=== PATIENT | female | born 1985 | race Caucasian/White ===

== ENCOUNTER 2020-10-25 19:36 | Emergency (ER) | payer SELFPAY ==
[2020-10-25 19:39] VITALS: BP 142/95; PULSE 118; TEMP 98.2; BMI 27.4
[2020-10-25] MEDS ORDERED: KETOROLAC TROMETHAMINE 30 MG/1 ML VIAL ONE (20:04)
[2020-10-25] MEDS ORDERED: KETOROLAC TROMETHAMINE 60 MG/2 ML VIAL IM ONE (20:16)
== END 2020-10-25 20:23 | disposition home or self-care (01) ==
LOC: JERFT 19:36
PROC: 3E0233Z Introduction of Anti-inflammatory into Muscle, Percutaneous Approach (ICD-10-PCS; principal; 2020-10-25)
DX: M54.2 Cervicalgia (principal); M54.9 Dorsalgia, unspecified
CPT/HCPCS: 99284-25

== ENCOUNTER 2020-12-08 22:52 | Emergency (ER) | payer OTHER ==
[2020-12-08 23:00] VITALS: TEMP 99.1; BMI 26.2
[2020-12-09] MEDS ORDERED: ACETAMINOPHEN 325 MG TABLET (FP) PO ONE (00:24)
[2020-12-09] MEDS ORDERED: ACETAMINOPHEN 325 MG TABLET (FP) ONE (00:28)
[2020-12-09 04:14] VITALS: BP 124/75; PULSE 80
== END 2020-12-09 03:41 | disposition home or self-care (01) ==
LOC: JER 22:52
DX: S93.402A Sprain of unspecified ligament of left ankle, initial encounter (principal)
CPT/HCPCS: 73610-TC-LT-FY; 73630-TC-LT; 99283-25

== ENCOUNTER 2021-06-27 11:38 | Emergency (ER) | payer OTHER ==
[2021-06-27 11:45] VITALS: BP 116/83; PULSE 72; TEMP 98.4; BMI 24.7
[2021-06-28 07:08] LABS: SARS-CoV-2 NAA Detected (Not Detected)
== END 2021-06-27 14:01 | disposition home or self-care (01) ==
LOC: JER 11:38
DX: J06.9 Acute upper respiratory infection, unspecified (principal)
CPT/HCPCS: 87804; 87807; 99283-25; C9803; U0003; U0005

== ENCOUNTER 2023-05-20 10:41 | Emergency (ER) | payer BC, OTHER ==
[2023-05-20] MEDS ORDERED: ONDANSETRON 4 MG/2 ML VIAL IVPUSH ONE ×2 (11:16→17:57)
[2023-05-20] MEDS ORDERED: ACETAMINOPHEN 1000 MG/100 ML BAG IVPB ONE (11:16)
[2023-05-20] MEDS ORDERED: SODIUM CHLORIDE 1,000 ML IV STA (11:16)
[2023-05-20] MEDS ORDERED: ACETAMINOPHEN INJECTION 100 ML IVPB ONE (11:18)
[2023-05-20] MEDS ORDERED: ONDANSETRON *ODT* 4 MG TABLET ONE (11:18)
[2023-05-20] MEDS ORDERED: ONDANSETRON 4 MG/2 ML VIAL ONE ×3 (11:19→18:05)
[2023-05-20] MEDS ORDERED: METOCLOPRAMIDE HCL INJECTION 10 MG/2 ML VIAL IVPB ONE (12:05)
[2023-05-20] MEDS ORDERED: METOCLOPRAMIDE HCL INJECTION 10 MG/2 ML VIAL ONE (12:07)
[2023-05-20 12:21] LABS: BASO % 0.2 % (0-2.0); HEMATOCRIT 43.2 % (32.4-45.2); HEMOGLOBIN 14.8 GM/dL (10.7-15.3); LYMPH % 3.9 % (8-40); MCHC 34.2 g/dl (32.0-36.0); MEAN CELL VOLUME 90.6 fl (80-96); MEAN PLT VOLUME 8.2 fl (7.5-11.1); NEUT % 88.9 % (42.8-82.8); PLATELET COUNT 279 10^3/uL (134-434); RBC 4.78 M/mm3 (3.60-5.2); RDW 12.6 % (11.6-15.6)
[2023-05-20 12:34] LABS: POTASSIUM 4.1 mmol/L (3.5-5.1)
[2023-05-20 12:36] LABS: CALCIUM 9.4 mg/dL (8.5-10.1)
[2023-05-20 12:39] LABS: ALBUMIN 4.2 g/dl (3.4-5.0); BLOOD UREA NITROGEN 10.2 mg/dL (7-18)
[2023-05-20 12:40] LABS: CREATININE 0.7 mg/dL (0.55-1.3)
[2023-05-20 12:41] LABS: BILIRUBIN,TOTAL 1.8 mg/dL (0.2-1); TOT PROT 7.4 g/dl (6.4-8.2)
[2023-05-20 13:14] VITALS: BMI 24.7
[2023-05-20 13:23] LABS: PH,URINE >= 9.0 (5.0-8.0); URINE APPEARANCE CLEAR; URINE BILIRUBIN NEGATIVE (NEGATIVE); URINE COLOR YELLOW; URINE GLUCOSE (UA) NEGATIVE (NEGATIVE); URINE KETONE 2+ (NEGATIVE); URINE LEUK ESTERASE NEGATIVE (NEGATIVE); URINE NITRITE NEGATIVE (NEGATIVE); URINE PROTEIN TRACE (NEGATIVE); URINE UROBILINOGEN 0.2 mg/dL (0.2-1.0)
[2023-05-20] MEDS ORDERED: FAMOTIDINE 20 MG/50 ML IVPB 20 MG/50 ML MG IVPB ONE ×2 (14:34→14:40)
[2023-05-20 17:16] VITALS: BP 97/56; PULSE 103; RESP 18; TEMP 98.4
== END 2023-05-20 19:13 | disposition home or self-care (01) ==
LOC: JER 10:41
PROC: 3E033GC Introduction of Other Therapeutic Substance into Peripheral Vein, Percutaneous Approach (ICD-10-PCS; principal; 2023-05-20)
PROC: 3E033NZ Introduction of Analgesics, Hypnotics, Sedatives into Peripheral Vein, Percutaneous Approach (ICD-10-PCS; 2023-05-20)
PROC: 3E033GC Introduction of Other Therapeutic Substance into Peripheral Vein, Percutaneous Approach (ICD-10-PCS; 2023-05-20)
PROC: 3E033GC Introduction of Other Therapeutic Substance into Peripheral Vein, Percutaneous Approach (ICD-10-PCS; 2023-05-20)
PROC: 3E033GC Introduction of Other Therapeutic Substance into Peripheral Vein, Percutaneous Approach (ICD-10-PCS; 2023-05-20)
PROC: 3E0337Z Introduction of Electrolytic and Water Balance Substance into Peripheral Vein, Percutaneous Approach (ICD-10-PCS; 2023-05-20)
DX: R10.84 Generalized abdominal pain (principal); R11.2 Nausea with vomiting, unspecified; K59.00 Constipation, unspecified; K52.9 Noninfective gastroenteritis and colitis, unspecified
CPT/HCPCS: 36415; 74177-TC; 80053; 81003; 83605; 83690; 84703; 85025; 87086; 99285-25; Q9967

== ENCOUNTER 2023-08-22 06:15 | Inpatient (IN) | payer OTHER ==
[2023-08-22] MEDS ORDERED: ONDANSETRON 4 MG/2 ML VIAL ONE (06:38)
[2023-08-22] MEDS: ONDANSETRON 4 MG/2 ML VIAL IVPUSH ONE (06:45)
[2023-08-22] MEDS: morphine CARPU-JECT 2 MG/1 ML DISP.SYRIN IVPUSH ONE (06:45)
[2023-08-22] MEDS: LACTATED RINGERS SOLUTION 1,000 ML/1,000 ML INFUS.BAG IV SCH ×2 (06:46→15:02)
[2023-08-22 07:04] LABS: POTASSIUM 4.4 mmol/L (3.5-5.1)
[2023-08-22 07:06] LABS: CALCIUM 9.6 mg/dL (8.5-10.1)
[2023-08-22 07:07] LABS: ALBUMIN 4.1 g/dl (3.4-5.0); BLOOD UREA NITROGEN 10.4 mg/dL (7-18); MAGNESIUM 1.8 mg/dL (1.8-2.4)
[2023-08-22 07:08] LABS: BASO % 0.3 % (0-2.0); EOS % 0.2 % (0-4.5); HEMATOCRIT 46.9 % (32.4-45.2); HEMOGLOBIN 16.1 GM/dL (10.7-15.3); LYMPH % 8.2 % (8-40); MCHC 34.3 g/dl (32.0-36.0); MEAN CELL VOLUME 93.1 fl (80-96); MONO % 9.5 % (3.8-10.2); NEUT % 81.8 % (42.8-82.8); PLATELET COUNT 281 10^3/uL (134-434); RBC 5.04 M/mm3 (3.60-5.2); RDW 12.8 % (11.6-15.6); WHITE BLOOD COUNT 18.9 K/mm3 (4.0-10.0)
[2023-08-22 07:09] LABS: CREATININE 0.8 mg/dL (0.55-1.3)
[2023-08-22 07:10] LABS: PHOSPHOROUS 1.6 mg/dL (2.5-4.9)
[2023-08-22 07:11] LABS: TOT PROT 7.6 g/dl (6.4-8.2)
[2023-08-22 07:32] LABS: LACTIC ACID 5.4 mmol/L (0.4-2.0)
[2023-08-22] MEDS: SODIUM CHLORIDE 0.9% 500 ML INFUS.BAG IV ONE (07:56)
[2023-08-22] MEDS ORDERED: ACETAMINOPHEN INJECTION 100 ML IVPB ONE (08:41)
[2023-08-22] MEDS: ACETAMINOPHEN 1000 MG/100 ML BAG IVPB ONE (08:44)
[2023-08-22] MEDS ORDERED: FAMOTIDINE 20 MG/50 ML IVPB 20 MG/50 ML MG IVPB ONE (08:59)
[2023-08-22] MEDS: FAMOTIDINE 20 MG/50 ML IVPB 20 MG/50 ML MG IVPB ONE (09:02)
[2023-08-22] MEDS: LACTATED RINGERS SOLUTION 1000 ML INFUS.BAG IV ONE (09:23)
[2023-08-22 09:47] LABS: URINE APPEARANCE CLEAR; URINE BILIRUBIN NEGATIVE (NEGATIVE); URINE COLOR YELLOW; URINE GLUCOSE (UA) NEGATIVE (NEGATIVE); URINE KETONE 1+ (NEGATIVE); URINE LEUK ESTERASE NEGATIVE (NEGATIVE); URINE NITRITE NEGATIVE (NEGATIVE); URINE PROTEIN NEGATIVE (NEGATIVE); URINE UROBILINOGEN 0.2 mg/dL (0.2-1.0)
[2023-08-22] MEDS ORDERED: KETOROLAC TROMETHAMINE 15 MG/ML VIAL ONE (12:13)
[2023-08-22] MEDS: KETOROLAC TROMETHAMINE 15 MG/ML VIAL IVPUSH ONE (12:23)
[2023-08-22] MEDS ORDERED: TRIMETHOBENZAMIDE HCL 200MG/2ML INJ IM ONE (13:28)
[2023-08-22] MEDS ORDERED: METOCLOPRAMIDE HCL INJECTION 10 MG/2 ML VIAL ONE (13:33)
[2023-08-22] MEDS: TRIMETHOBENZAMIDE HCL 200MG/2ML INJ IM ONE (13:41)
[2023-08-22] MEDS: METOCLOPRAMIDE HCL INJECTION 10 MG/2 ML VIAL IVPUSH ONE (13:41)
[2023-08-22] MEDS ORDERED: DEXTROSE 5%-LACTATED RINGERS 1,000 ML IV SCH (14:45)
[2023-08-22 18:14] VITALS: BMI 24.7
[2023-08-22] MEDS: ACETAMINOPHEN 500 MG TABLET (FP) PO PRN (19:37)
[2023-08-22] MEDS: ONDANSETRON 4 MG/2 ML VIAL IVPUSH PRN (19:37)
[2023-08-22] MEDS: PANTOPRAZOLE 20 MG TABLET PO SCH (22:01)
[2023-08-22] MEDS: AMOXICILLIN 500 MG CAPSULE (FP) PO SCH (22:29)
[2023-08-22] MEDS: CLARITHROMYCIN 500 MG TABLET (UD) PO SCH (22:29)
[2023-08-23 07:55] LABS: BASO % 0.8 % (0-2.0); EOS % 0.3 % (0-4.5); HEMATOCRIT 39.4 % (32.4-45.2); HEMOGLOBIN 13.8 GM/dL (10.7-15.3); LYMPH % 27.4 % (8-40); MCH 32.3 pg (25.7-33.7); MCHC 35.1 g/dl (32.0-36.0); MEAN CELL VOLUME 92.2 fl (80-96); MEAN PLT VOLUME 7.8 fl (7.5-11.1); MONO % 10.4 % (3.8-10.2); NEUT % 61.1 % (42.8-82.8); PLATELET COUNT 238 10^3/uL (134-434); RBC 4.28 M/mm3 (3.60-5.2); RDW 12.8 % (11.6-15.6); WHITE BLOOD COUNT 11.8 K/mm3 (4.0-10.0)
[2023-08-23] MEDS: LORazepam 2 MG/ML SDV VIAL IVPUSH ONE (07:58)
[2023-08-23 08:10] LABS: CALCIUM 9.1 mg/dL (8.5-10.1)
[2023-08-23 08:11] LABS: BLOOD UREA NITROGEN 5.4 mg/dL (7-18)
[2023-08-23 08:12] LABS: ALBUMIN 3.3 g/dl (3.4-5.0)
[2023-08-23 08:14] LABS: CREATININE 0.6 mg/dL (0.55-1.3)
[2023-08-23 08:17] LABS: BILIRUBIN,TOTAL 1.9 mg/dL (0.2-1)
[2023-08-23 08:18] LABS: TOT PROT 6.1 g/dl (6.4-8.2)
[2023-08-23 08:19] LABS: BILIRUBIN,DIRECT 0.3 mg/dL (0.0-0.2)
[2023-08-23 08:49] LABS: PHOSPHOROUS 2.6 mg/dL (2.5-4.9)
[2023-08-23] MEDS: POTASSIUM CHLORIDE ORAL LIQUID 20 MEQ/15 ML PO ONE (11:00)
[2023-08-23] MEDS: D5-1/2NS+10 MEQ KCL - 10 MEQ/1,000 ML INFUS.BAG IV SCH (11:01)
[2023-08-23] MEDS: FAMOTIDINE 20 MG/50 ML IVPB 20 MG/50 ML MG IVPB SCH (11:01)
[2023-08-24 08:52] LABS: BASO % 0.4 % (0-2.0); EOS % 0.7 % (0-4.5); HEMOGLOBIN 13.5 GM/dL (10.7-15.3); MCH 32.8 pg (25.7-33.7); MCHC 35.5 g/dl (32.0-36.0); MEAN CELL VOLUME 92.4 fl (80-96); MEAN PLT VOLUME 7.5 fl (7.5-11.1); MONO % 9.6 % (3.8-10.2); NEUT % 54.3 % (42.8-82.8); PLATELET COUNT 272 10^3/uL (134-434); RBC 4.11 M/mm3 (3.60-5.2); RDW 12.7 % (11.6-15.6); WHITE BLOOD COUNT 8.4 K/mm3 (4.0-10.0)
[2023-08-24 09:09] LABS: CHLORIDE 107 mmol/L (98-107); POTASSIUM 3.2 mmol/L (3.5-5.1); SODIUM 139 mmol/L (136-145)
[2023-08-24 09:11] LABS: ANION GAP 8 mmol/L (4-13); CALCIUM 8.2 mg/dL (8.5-10.1); CO2 24 mmol/L (21-32); GLUCOSE,RANDOM 93 mg/dL (74-106)
[2023-08-24 09:12] LABS: ALBUMIN 3.3 g/dl (3.4-5.0)
[2023-08-24 09:14] LABS: SGPT/ALT 55 U/L (13-61)
[2023-08-24 09:15] LABS: CREATININE 0.5 mg/dL (0.55-1.3); SGOT/AST 44 U/L (15-37)
[2023-08-24 09:16] LABS: BILIRUBIN,TOTAL 1.7 mg/dL (0.2-1); TOT PROT 6.1 g/dl (6.4-8.2)
[2023-08-24 09:17] LABS: ALK PHOS 43 U/L (45-117)
[2023-08-24 10:03] LABS: PHOSPHOROUS 2.8 mg/dL (2.5-4.9)
[2023-08-24] MEDS: POTASSIUM CHLORIDE ORAL LIQUID 20 MEQ/15 ML PO ONE (11:16)
[2023-08-24] MEDS ORDERED: INSULIN (NOVOLOG) ASPART 100 UNITS/ML 10ML VIAL ONE (21:22)
[2023-08-24] MEDS: ONDANSETRON 4 MG/2 ML VIAL IVPUSH PRN (21:26)
[2023-08-25 09:23] LABS: BASO % 0.6 % (0-2.0); HEMATOCRIT 40.7 % (32.4-45.2); HEMOGLOBIN 14.3 GM/dL (10.7-15.3); LYMPH % 33.7 % (8-40); MCH 32.3 pg (25.7-33.7); MCHC 35.1 g/dl (32.0-36.0); MEAN CELL VOLUME 92.1 fl (80-96); MEAN PLT VOLUME 7.6 fl (7.5-11.1); MONO % 9.8 % (3.8-10.2); NEUT % 54.9 % (42.8-82.8); PLATELET COUNT 314 10^3/uL (134-434); RBC 4.42 M/mm3 (3.60-5.2); RDW 12.4 % (11.6-15.6); WHITE BLOOD COUNT 8.2 K/mm3 (4.0-10.0)
[2023-08-25 09:27] LABS: CHLORIDE 108 mmol/L (98-107); POTASSIUM 3.6 mmol/L (3.5-5.1); SODIUM 139 mmol/L (136-145)
[2023-08-25 09:29] LABS: CALCIUM 8.5 mg/dL (8.5-10.1)
[2023-08-25 09:30] LABS: ANION GAP 7 mmol/L (4-13); CO2 24 mmol/L (21-32); GLUCOSE,RANDOM 91 mg/dL (74-106)
[2023-08-25] MEDS: LORazepam 2 MG/ML SDV VIAL IVPUSH ONE (09:31)
[2023-08-25 09:33] LABS: CREATININE 0.5 mg/dL (0.55-1.3)
[2023-08-25 09:38] LABS: BLOOD UREA NITROGEN 2.8 mg/dL (7-18)
[2023-08-25] MEDS: ALPRAZolam 1 MG TABLET PO PRN (13:08)
[2023-08-25 15:40] VITALS: RESP 18
[2023-08-25 17:20] VITALS: BP 127/86; PULSE 106; TEMP 99.1
[2023-08-25] MEDS ORDERED: POLYETHYLENE GLYCOL (HEALTHYLAX) 3350 17 GM PACKET PO SCH ×2 (22:00)
== END 2023-08-25 19:19 | disposition home or self-care (01) | DRG 254 ==
LOC: JER 06:15 → JERBED 13:42 → J8W 16:17
PROVIDERS: ADMIT Internal Medicine; ATTEND Nurse Practitioner Acute Care
PROC: 0DBP8ZX Excision of Rectum, Via Natural or Artificial Opening Endoscopic, Diagnostic (ICD-10-PCS; 2023-08-25)
PROC: 0DBN8ZX Excision of Sigmoid Colon, Via Natural or Artificial Opening Endoscopic, Diagnostic (ICD-10-PCS; principal; 2023-08-25 13:15)
DX: K59.00 Constipation, unspecified (principal); K64.8 Other hemorrhoids; R10.30 Lower abdominal pain, unspecified
CPT/HCPCS: 36415; 74177-TC; 80048; 80053; 80076; 81003; 83605; 83690; 83735; 84100; 84484; 84703; 85025; 85379; 86140; 87045; 87046; 87086; 87186; 87324; 87449; 93005; 93010; 99285-25; J0131; Q9967

== ENCOUNTER 2024-06-14 11:19 | Emergency (ER) | payer OTHER ==
[2024-06-14] MEDS ORDERED: ACETAMINOPHEN INJECTION 100 ML ONE (12:01)
[2024-06-14] MEDS ORDERED: ONDANSETRON 4 MG/2 ML VIAL ONE ×2 (12:01→15:56)
[2024-06-14] MEDS ORDERED: FAMOTIDINE 20 MG/50 ML IVPB 20 MG/50 ML MG IVPB ONE (12:02)
[2024-06-14] MEDS ORDERED: PANTOPRAZOLE SODIUM 40 MG VIAL ONE (12:02)
[2024-06-14 12:21] VITALS: BP 130/91; PULSE 94; RESP 18; TEMP 97.9; BMI 22.1
[2024-06-14] MEDS: ONDANSETRON 4 MG/2 ML VIAL IVPUSH ONE ×2 (12:36→16:01)
[2024-06-14] MEDS: ACETAMINOPHEN 1000 MG/100 ML BAG IVPB ONE (12:36)
[2024-06-14] MEDS: FAMOTIDINE 20 MG/50 ML IVPB 20 MG/50 ML MG IVPB ONE (12:36)
[2024-06-14] MEDS: LACTATED RINGERS SOLUTION 1000 ML INFUS.BAG IV ONE (12:36)
[2024-06-14] MEDS: PANTOPRAZOLE SODIUM 40 MG VIAL IVPUSH ONE (12:37)
[2024-06-14 12:41] LABS: BASO % 0.1 % (0-2.0); HEMATOCRIT 41.8 % (32.4-45.2); HEMOGLOBIN 14.1 GM/dL (10.7-15.3); LYMPH % 8.2 % (8-40); MCH 31.6 pg (25.7-33.7); MCHC 33.8 g/dl (32.0-36.0); MEAN CELL VOLUME 93.7 fl (80-96); MEAN PLT VOLUME 7.2 fl (7.5-11.1); MONO % 5.4 % (3.8-10.2); NEUT % 86.3 % (42.8-82.8); PLATELET COUNT 273 10^3/uL (134-434); RBC 4.46 M/mm3 (3.60-5.2); RDW 12.2 % (11.6-15.6)
[2024-06-14 12:46] LABS: INR 0.98 (0.83-1.09); PROTHROMBIN TIME (PATIENT) 11.3 SEC (9.7-13.0)
[2024-06-14 12:48] LABS: ACTIVATED PTT 24.6 SECONDS (25.2-36.5)
[2024-06-14 12:57] LABS: POTASSIUM 3.4 mmol/L (3.5-5.1)
[2024-06-14 13:00] LABS: ALBUMIN 4.4 g/dl (3.4-5.0); BLOOD UREA NITROGEN 13.5 mg/dL (7-18); CALCIUM 9.8 mg/dL (8.5-10.1); MAGNESIUM 1.7 mg/dL (1.8-2.4)
[2024-06-14 13:04] LABS: BILIRUBIN,TOTAL 1.6 mg/dL (0.2-1); CREATININE 0.7 mg/dL (0.55-1.3)
[2024-06-14 13:06] LABS: TOT PROT 7.6 g/dl (6.4-8.2)
[2024-06-14 13:09] LABS: LACTIC ACID 2.7 mmol/L (0.4-2.0)
[2024-06-14] MEDS ORDERED: morphine SULFATE 4 MG/ML VIAL ONE (13:17)
[2024-06-14] MEDS: morphine CARPU-JECT 4 MG/1 ML DISP.SYRIN IVPUSH ONE (13:23)
[2024-06-14] MEDS ORDERED: SUCRALFATE 1 GM TABLET (FP) ONE (13:57)
[2024-06-14] MEDS ORDERED: MAGNESIUM SULFATE IN WATER 2 GM/50 ML IVPB IVPB ONE (13:57)
[2024-06-14 14:04] LABS: HIV INTERPRETATION NEGATIVE (NEGATIVE)
[2024-06-14] MEDS: SUCRALFATE 1 GM TABLET (FP) PO ONE (14:16)
[2024-06-14] MEDS: MAGNESIUM SULF 50% (8.12 MEQ/2 ML-1 GM VIAL) IVPB ONE (14:16)
== END 2024-06-14 17:40 | disposition home or self-care (01) ==
LOC: JER 11:19 → JERBED 14:37 → UNDOADMIN 14:37 → UNDODISIN 17:06 → JER 17:40
PROC: 3E033GC Introduction of Other Therapeutic Substance into Peripheral Vein, Percutaneous Approach (ICD-10-PCS; principal; 2024-06-14)
PROC: 3E033NZ Introduction of Analgesics, Hypnotics, Sedatives into Peripheral Vein, Percutaneous Approach (ICD-10-PCS; 2024-06-14)
PROC: 3E033GC Introduction of Other Therapeutic Substance into Peripheral Vein, Percutaneous Approach (ICD-10-PCS; 2024-06-14)
PROC: 3E033NZ Introduction of Analgesics, Hypnotics, Sedatives into Peripheral Vein, Percutaneous Approach (ICD-10-PCS; 2024-06-14)
PROC: 3E033GC Introduction of Other Therapeutic Substance into Peripheral Vein, Percutaneous Approach (ICD-10-PCS; 2024-06-14)
PROC: 3E033GC Introduction of Other Therapeutic Substance into Peripheral Vein, Percutaneous Approach (ICD-10-PCS; 2024-06-14)
DX: K29.00 Acute gastritis without bleeding (principal); R10.84 Generalized abdominal pain; R11.2 Nausea with vomiting, unspecified; R19.7 Diarrhea, unspecified
CPT/HCPCS: 0241U-QW; 36415; 71045-TC-FY; 80053; 83605; 83690; 83735; 84703; 85025; 85610; 85730; 86803; 86850; 86900; 86901; 87389; 93005; 93010; 99285-25; J0131

== ENCOUNTER 2025-04-03 09:16 | Emergency (ER) | payer OTHER ==
[2025-04-03 09:25] VITALS: RESP 20; BMI 22.4
[2025-04-03] MEDS ORDERED: ACETAMINOPHEN INJECTION 100 ML ONE (10:13)
[2025-04-03] MEDS ORDERED: ONDANSETRON 4 MG/2 ML VIAL ONE ×2 (10:14→14:42)
[2025-04-03] MEDS ORDERED: FAMOTIDINE 20 MG/50 ML IVPB 20 MG/50 ML MG IVPB ONE (10:14)
[2025-04-03 10:20] LABS: ABSOLUTE IMMATURE GRANULOCYTES 0.07 x10^3/uL (0.0-0.031); BASOPHILS # 0.04 x10^3/uL (0.01-0.08); EOSINOPHIL % 0.1 % (0.7-5.8); EOSINOPHILS # 0.02 x10^3/uL (0.04-0.36); MCHC 34.5 g/dl (32.2-35.5); MEAN CELL VOLUME 93.2 fl (79.4-94.8); MEAN PLT VOLUME 8.8 fl (9.4-12.3); MONOCYTE # 1.13 x10^3/uL (0.24-0.86); MONOCYTE % 6.7 % (4.7-12.5); RDW 11.4 % (12.1-16.8)
[2025-04-03] MEDS: SODIUM CHLORIDE 0.9% 500 ML INFUS.BAG IV ONE (10:21)
[2025-04-03] MEDS: FAMOTIDINE 20 MG/50 ML IVPB 20 MG/50 ML MG IVPB ONE (10:21)
[2025-04-03] MEDS: ONDANSETRON 4 MG/2 ML VIAL IVPUSH PRN (10:21)
[2025-04-03] MEDS: ACETAMINOPHEN 1000 MG/100 ML BAG IVPB ONE (10:22)
[2025-04-03 10:43] LABS: GLUCOSE,RANDOM 95.0 mg/dL (74-106)
[2025-04-03 10:44] LABS: TOT PROT 7.6 g/dl (6.4-8.2)
[2025-04-03 10:45] LABS: CO2 20.0 mmol/L (21-32)
[2025-04-03 10:46] LABS: ALK PHOS 57.0 U/L (40-150)
[2025-04-03 10:49] LABS: CREATININE 0.58 mg/dL (0.55-1.3); SGOT/AST 30.0 U/L (5-34); SGPT/ALT 20.0 U/L (0-55)
[2025-04-03 11:10] LABS: HIV INTERPRETATION NEGATIVE (NEGATIVE)
[2025-04-03 11:29] LABS: URINE APPEARANCE CLEAR; URINE BILIRUBIN NEGATIVE (NEGATIVE); URINE COLOR YELLOW; URINE GLUCOSE (UA) NEGATIVE (NEGATIVE); URINE KETONE NEGATIVE (NEGATIVE)
[2025-04-03 11:30] LABS: URINE LEUK ESTERASE NEGATIVE (NEGATIVE); URINE NITRITE NEGATIVE (NEGATIVE); URINE PROTEIN 1+ (NEGATIVE); URINE UROBILINOGEN 0.2 mg/dL (0.2-1.0)
[2025-04-03 13:36] LABS: HCV DIAGNOSTIC IN-HOUSE W/RFLX NON-REACTIVE (NONREACTIVE)
[2025-04-03 16:01] VITALS: BP 108/87; PULSE 88; TEMP 98.2
[2025-04-03] MEDS ORDERED: MORPHINE SULFATE 2 MG/ML SYRINGE ONE (18:35)
[2025-04-03] MEDS ORDERED: DICYCLOMINE HCL 10 MG CAPSULE ONE (18:35)
[2025-04-03] MEDS ORDERED: KETOROLAC TROMETHAMINE 15 MG/ML VIAL ONE (18:35)
[2025-04-03] MEDS: morphine CARPU-JECT 2 MG/1 ML DISP.SYRIN IVPUSH ONE (18:52)
[2025-04-03] MEDS: KETOROLAC TROMETHAMINE 15 MG/ML VIAL IVPUSH ONE (18:54)
[2025-04-03] MEDS: CIPROFLOXACIN 500 MG TABLET (RESTRICTED TO ID) PO ONE (18:54)
[2025-04-03] MEDS: DICYCLOMINE HCL 20 MG TABLET PO ONE (18:54)
== END 2025-04-03 19:11 | disposition home or self-care (01) ==
LOC: JER 09:16
PROC: 3E033GC Introduction of Other Therapeutic Substance into Peripheral Vein, Percutaneous Approach (ICD-10-PCS; principal; 2025-04-03)
PROC: 3E033NZ Introduction of Analgesics, Hypnotics, Sedatives into Peripheral Vein, Percutaneous Approach (ICD-10-PCS; 2025-04-03)
PROC: 3E0333Z Introduction of Anti-inflammatory into Peripheral Vein, Percutaneous Approach (ICD-10-PCS; 2025-04-03)
PROC: 3E033NZ Introduction of Analgesics, Hypnotics, Sedatives into Peripheral Vein, Percutaneous Approach (ICD-10-PCS; 2025-04-03)
DX: K52.9 Noninfective gastroenteritis and colitis, unspecified (principal); R10.13 Epigastric pain; R10.32 Left lower quadrant pain; R11.2 Nausea with vomiting, unspecified; R68.83 Chills (without fever)
CPT/HCPCS: 36415; 71046-TC-FY; 74177-TC; 80053; 81003; 83690; 84703; 85025; 86803; 87389; 99285-25; Q9967